=== PATIENT | male | born 1950 | race Caucasian/White ===

== ENCOUNTER 2019-05-22 17:57 | Emergency (ER) | payer OTHER, MEDICARE ==
[~2019-05-22] VITALS: Ht 172.7 cm; Wt 76.2 kg
[~2019-05-22 17:57] MED LIST: SERT25 PO; TAMS.4ER PO
[2019-05-22] MEDS ORDERED: ZOLM5 PO (18:05)
[2019-05-22] MEDS ORDERED: Norco 7.5-3251 EACH PO (18:05)
[2019-05-22] MEDS ORDERED: IBUP800 (18:05)
== END 2019-05-22 19:16 | disposition home or self-care (01) ==
LOC: ER 17:57
DX: Z04.1 Encounter for examination and observation following transport accident (principal); Z79.899 Other long term (current) drug therapy
CPT/HCPCS: 99284

== ENCOUNTER 2023-08-20 16:44 | Emergency (ER) | payer MEDICARE, OTHER ==
[~2023-08-20] VITALS: Ht 172.7 cm; Wt 78.0 kg
[~2023-08-20 16:44] MED LIST changes: +IBUP800; +Norco 7.5-3251 EACH PO; +ZOLM5 PO
[2023-08-20 16:50] VITALS: BP 147/73
[2023-08-20] MEDS ORDERED: IBUP800 PO (18:27)
== END 2023-08-20 18:43 | disposition home or self-care (01) ==
LOC: ER 16:44
DX: M54.50 Low back pain, unspecified (principal); G89.29 Other chronic pain; X50.0XXA Overexertion from strenuous movement or load, initial encounter
CPT/HCPCS: 72100; 99283-25